=== PATIENT | male | born 1970 | race Caucasian/White ===

== ENCOUNTER 2017-03-31 11:00 | Emergency (ER) | payer BC, OTHER ==
[2017-03-31] MEDS ORDERED: PROPARACAINE HCL OPTH 15ML BTL OPTH ONE (11:01)
--- NOTE | 2017-03-31 11:22 | Emergency Department Record ---
History of Present Illness - General Chief complaint: Eye Problem Stated complaint: FB IN EYE Time Seen by Provider: 03/31/17 11:01 Source: Patient Mode of Arrival: Ambulatory Limitations: No limitations - History of Present Illness Initial comments: 46 yo male presents with a foreign body sensation in the right eye. 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 He does not recall a specific injury. He has a lens implant in the right eye from a trauma 10 years ago. His normal vision in the right eye is poor. No contacts. His vision in his "good" eye is normal today. No grinding or high velocity work. Ophthalmology care is through [facility] chief complaint: Eye pain, Foreign body -: Minutes(s) Onset Description: Sudden Location: Right eye Place: Work If Injury: Other (dust and debris) Eye Symptoms: Decreased vision Severity: Moderate If Pain, Quality: Aching Consistency: Constant Associated Symptoms: None Treatments Prior to Arrival: None - Related Data Home Medications Medication Instructions Recorded Confirmed Last Taken No Home Med [NO HOME MEDS] 03/31/17 03/31/17 Unknown Allergies Allergy/AdvReac Type Severity Reaction Status Date / Time NO KNOWN DRUG ALLERGY Allergy Uncoded 09/19/13 10:12 Review of Systems Constitutional: Denies: Chills, Fever Eyes: Reports: Eye pain, Vision change ENT: Denies: Congestion, Throat pain Respiratory: Denies: Cough Cardiovascular: Denies: Chest pain, Syncope Endocrine: Denies: Fatigue Gastrointestinal: Denies: Abdominal pain, Diarrhea, Nausea, Vomiting Genitourinary: Denies: Dysuria, Frequency, Hematuria Musculoskeletal: Denies: Arthralgia, Back pain, Myalgia Skin: Denies: Bruising, Change in color, Rash Neurological: Denies: Confusion, Headache, Numbness, Tremors, Vertigo, Weakness Psychiatric: Denies: Anxiety Hematological/Lymphatic: Denies: Blood Clots, Easy bleeding, Easy bruising Physical Exam - General General Appearance: Alert, Oriented x3, Cooperative, No acute distress Limitations: No limitations - Head Head exam: Atraumatic, Normal inspection - Eye Eye exam: PERRL, Conjunctival injection (mild), EOMI. negative: Periorbital swelling, Periorbital tenderness Pupils: Other (post op with lens). negative: Irregular Image of Eyes: 1 - stain uptake 2 - tiny dark FB, no rust - ENT ENT exam: Normal exam Ear exam: Normal external inspection Nasal Exam: Normal inspection Mouth exam: Normal external inspection - Neck Neck exam: Normal inspection - Rectal Rectal exam: Deferred - exam: Deferred - Neurological Neurological exam: Alert, CN II-XII intact, Normal gait, Oriented X3. 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 03/31/17 11:22 Disposition Disposition: Discharge Clinical Impression: Corneal abrasion, Eye foreign body Disposition: Home, Self-Care Condition: (1) Good Instructions: Corneal Abrasion (ED), Eye Foreign Body (ED) Additional Instructions: REturn if worse [facility] eye doctor for a recheck tomorrow if not significantly improved. Aplly 2 drops every 6 hours for the antibiotic Forms: Patient Portal Access Time of Disposition: 11:27 Quality - Quality Measures Quality Measures: N/A - Blood Pressure Screening Does Patient Have Any of the Following: No Blood Pressure Classification: Hypertensive Reading Systolic Measurement: 151 Diastolic Measurement: 98 Screening for High Blood Pressure: < Pre-Hypertensive BP, F/U Documented > [ G8950] Pre-Hypertensive Follow-up Interventions: Referral to alternative/primary care provider.
[2017-03-31] MEDS ORDERED: SULFACETAMIDE SODIUM 15ML BTL OPTH ONE (11:26)
[2017-03-31 13:34] LABS: AMPHETAMINE SCREEN URINE NOT DETECTED; BARBITURATE SCREEN URINE NOT DETECTED; BENZODIAZEPINE SCREEN URINE NOT DETECTED; COCAINE SCREEN URINE NOT DETECTED; METHADONE SCREEN URINE NOT DETECTED; METHAMPHETAMINE SCREEN NOT DETECTED; OPIATE SCREEN URINE NOT DETECTED; OXYCODONE SCREEN URINE NOT DETECTED; PHENCYCLIDINE SCREEN URINE NOT DETECTED; PROPOXYPHENE SCREEN URINE NOT DETECTED; THC SCREEN URINE NOT DETECTED; TRICYCLIC ANTIDEPRESSANT SCRN NOT DETECTED
== END 2017-03-31 11:36 | disposition home or self-care (01) ==
LOC: ER 11:00
DX: T15.01XA Foreign body in cornea, right eye, initial encounter (principal); Y92.63 Factory as the place of occurrence of the external cause; Y99.0 Civilian activity done for income or pay
CPT/HCPCS: 65222; 80305; 99283

== ENCOUNTER 2018-11-08 06:23 | Emergency (ER) | payer BC ==
[2018-11-08] MEDS ORDERED: ASPIRIN 81 MG CHEWABLE TABLET PO ONE (06:38)
--- NOTE | 2018-11-08 06:44 | Emergency Department Record ---
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 he has never had any thing like this before. he smokes. he has no fam hx, no htn, no hi chol. he has been on no recent trips, no recent surgeries and no leg pain he is currently feeling better with no chest pain. MD Complaint: Lightheadedness Onset/Timin -: Days(s) Timing: Unsure Description: Lightheadedness, Off-balance History of Same: No History of Trauma: No Severity: Moderate Improves With: Nothing Worsens With: Nothing Associated Symptoms: Chest pain, Shortness of breath, Other - [place] Coma Scale Eye Response: (4) Open spontaneously Motor Response: (6) Obeys commands Verbal Response: (5) Oriented [place] Total: 15 - Related Data Home Medications Medication Instructions Recorded Confirmed Last Taken No Home Med [NO HOME MEDS] 11/08/18 11/08/18 Unknown Allergies Allergy/AdvReac Type Severity Reaction Status Date / Time NO KNOWN DRUG ALLERGY Allergy Uncoded 09/19/13 10:12 Travel Screening - Travel/Exposure Within Last 30 Days Have you traveled within the last 30 days?: No Review of Systems Reviewed: No additional complaints except as noted below Constitutional: Reports: As per HPI. Denies: Chills, Fever, Malaise, Night sweats, Weakness, Weight change Eyes: Reports: As per HPI. Denies: Eye discharge, Eye pain, Photophobia, Vision change ENT: Reports: As per HPI. Denies: Congestion, Dental pain, Ear pain, Epistaxis, Hearing loss, Throat pain Respiratory: Reports: As per HPI, Dyspnea. Denies: Cough, Hemoptysis, Stridor, Wheezes Cardiovascular: Reports: As per HPI, Chest pain. Denies: Arrhythmia, Dyspnea on exertion, Edema, Murmurs, Orthopnea, Palpitations, Paroxysmal nocturnal dyspnea, Rheumatic Fever, Syncope Endocrine: Reports: As per HPI. Denies: Fatigue, Heat or cold intolerance, Polydipsia, Polyuria Gastrointestinal: Reports: As per HPI, Nausea. Denies: Abdominal pain, Constipation, Diarrhea, Hematemesis, Hematochezia, Melena, Vomiting Genitourinary: Reports: As per HPI. Denies: Dysuria, Frequency, Hematuria, Incontinence, Retention, Testicular pain, Testicular mass, Urgency Musculoskeletal: Reports: As per HPI. Denies: Arthralgia, Back pain, Gout, Joint swelling, Myalgia, Neck pain Skin: Reports: As per HPI. Denies: Bruising, Change in color, Change in hair/nails, Lesions, Pruritus, Rash Neurological: Reports: As per HPI. Denies: Abnormal gait, Confusion, Headache, Numbness, Paresthesias, Seizure, Tingling, Tremors, Vertigo, Weakness Psychiatric: Reports: As per HPI. Denies: Anxiety, Auditory hallucinations, Depression, Homicidal thoughts, Suicidal thoughts, Visual hallucinations Hematological/Lymphatic: Reports: As per HPI. Denies: Anemia, Blood Clots, Easy bleeding, Easy bruising, Swollen glands Past Medical History - SOCIAL HISTORY Smoking Status: Current every day smoker Alcohol Use: None Drug Use: None - RESPIRATORY Hx Respiratory Disorders: No - CARDIOVASCULAR Hx Cardio Disorders: No - NEURO Hx Neuro Disorders: No - GI Hx GI Disorders: No - Hx Genitourinary Disorders: No - ENDOCRINE Hx Endocrine Disorders: No - MUSCULOSKELETAL Hx Musculoskeletal Disorders: No - PSYCH Hx Psych Problems: No - HEMATOLOGY/ONCOLOGY Hx Hematology/Oncology Disorders: No Family Medical History Any Significant Family History?: No Physical Exam - General General Appearance: Alert, Oriented x3, Cooperative, Mild distress - Head Head exam: Normal inspection - Eye Eye exam: Normal appearance, PERRL, EOMI Pupils: Normal accommodation - ENT ENT exam: Normal exam, Mucous membranes moist, Normal external ear exam, Normal orophraynx Ear exam: Normal external inspection. negative: External canal tenderness Nasal Exam: Normal inspection. negative: Discharge, Sinus tenderness Mouth exam: Normal external inspection, Tongue normal Teeth exam: Normal inspection. negative: Dental caries Throat exam: Normal inspection. negative: Tonsillar erythema, Tonsillar exudate - Neck Neck exam: Normal inspection, Full ROM. negative: Tenderness - Respiratory Respiratory exam: Normal lung sounds bilaterally. negative: Respiratory distress - Cardiovascular Cardiovascular Exam: Regular rate, Normal rhythm, Normal heart sounds - GI/Abdominal GI/Abdominal exam: Soft, Normal bowel sounds. negative: Tenderness - Rectal Rectal exam: Deferred - exam: Deferred - Extremities Extremities exam: Normal inspection, Full ROM, Normal capillary refill. negative: Tenderness - Back Back exam: Reports: Normal inspection, Full ROM. Denies: Muscle spasm, Rash noted, Tenderness - Neurological Neurological exam: Alert, CN II-XII intact, Normal gait, Oriented X3 - Psychiatric Psychiatric exam: Normal affect, Normal mood - Skin Skin exam: Dry, Intact, Normal color, Warm Course Vital Signs 11/08/18 06:23 Temperature 98.6 F Pulse Rate 86 Respiratory 20 Rate Blood Pressure 150/105 Pulse Ox 99 - Reevaluation(s) Reevaluation #1: 11/08/18 06:53 care is being assumed by dr whitt. Medical Decision Making - Lab Data Result diagrams: 11/08/18 06:45 11/08/18 06:45 Disposition Forms: Patient Portal Access Quality - Quality Measures Quality Measures: N/A - Blood Pressure Screening Does Patient Have Any of the Following: No Blood Pressure Classification: Hypertensive Reading Systolic Measurement: 150 Diastolic Measurement: 105 Screening for High Blood Pressure: < First Hypertensive BP, F/U Documented > [G8950] First Hypertensive Follow-up Interventions: Follow-up with rescreen GT 1 day and LT 4 weeks.
[2018-11-08 07:01] LABS: ABSOLUTE NEUTROPHIL COUNT 7.45; BASO % 0.6 % (0-6); EOS % 1.7 % (0-6); GRAN % 67.8 % (47-80); HEMATOCRIT 46.8 % (42.0-52.0); LYMPH % 21.2 % (16-45); MEAN CORPUSCULAR HEMOGLOBIN 30.1 pg (27-33); MEAN CORPUSCULAR HGB CONC 34.2 g/dl (32-36); MEAN PLATELET VOLUME 10.6 fl (7.4-10.4); MONO % 8.7 % (0-9); PLATELET COUNT 264 K/uL (130-400); RED BLOOD COUNT 5.32 M/uL (4.40-5.70); RED CELL DISTRIBUTION WIDTH 13.5 % (11.5-14.5)
[2018-11-08] MEDS ORDERED: MECLIZINE 25 MG TABLET PO ONE (07:05)
[2018-11-08 07:14] LABS: BLOOD UREA NITROGEN 15 mg/dL (6-20)
[2018-11-08 07:15] LABS: EST GLOMERULAR FILTRATION RATE > 60 mL/min; TOTAL PROTEIN 6.8 g/dL (6.6-8.7)
[2018-11-08 07:17] LABS: GLUCOSE,RANDOM 104 mg/dL (74-109)
[2018-11-08 07:20] LABS: ALB/GLOB RATIO 2.1 (1.1-1.8); ALBUMIN 4.6 g/dL (4.0-5.0); ALKALINE PHOSPHATASE 53 U/L (40-129); ALT/SGPT 24 U/L (<41); AST/SGOT 31 U/L (10.0-50.0); CREATINE PHOSPHOKINASE 577 U/L (39-308)
[2018-11-08 07:22] LABS: CKMB 10.2 ng/mL (<6.73)
[2018-11-08 07:32] LABS: THYROID STIMULATING HORMONE 2.54 uIU/mL (0.270-4.20)
[2018-11-08 07:36] LABS: CKMB RELATIVE INDEX 1.77 % (0-4)
--- NOTE | 2018-11-08 08:18 | Emergency Department Record ---
History of Present Illness - General Chief Complaint: Dizziness Stated Complaint: DIZZY Time Seen by Provider: 11/08/18 06:32 Source: Patient Mode of Arrival: Ambulatory Limitations: No limitations - History of Present Illness Onset/Timin -: Days(s) Timing: Unsure Description: Lightheadedness, Off-balance History of Same: No History of Trauma: No Severity: Moderate Improves With: Nothing Worsens With: Nothing Associated Symptoms: Chest pain, Shortness of breath, Other - [place] Coma Scale Eye Response: (4) Open spontaneously Motor Response: (6) Obeys commands Verbal Response: (5) Oriented [place] Total: 15 - Related Data Home Medications Medication Instructions Recorded Confirmed Last Taken No Home Med [NO HOME MEDS] 11/08/18 11/08/18 Unknown Allergies Allergy/AdvReac Type Severity Reaction Status Date / Time NO KNOWN DRUG ALLERGY Allergy Uncoded 09/19/13 10:12 Travel Screening - Travel/Exposure Within Last 30 Days Have you traveled within the last 30 days?: No Review of Systems Constitutional: Reports: As per HPI. Denies: Chills, Fever, Malaise, Night sweats, Weakness, Weight change Eyes: Reports: As per HPI. Denies: Eye discharge, Eye pain, Photophobia, Vision change ENT: Reports: As per HPI. Denies: Congestion, Dental pain, Ear pain, Epistaxis, Hearing loss, Throat pain Respiratory: Reports: As per HPI, Dyspnea. Denies: Cough, Hemoptysis, Stridor, Wheezes Cardiovascular: Reports: As per HPI, Chest pain. Denies: Arrhythmia, Dyspnea on exertion, Edema, Murmurs, Orthopnea, Palpitations, Paroxysmal nocturnal dyspnea, Rheumatic Fever, Syncope Endocrine: Reports: As per HPI. Denies: Fatigue, Heat or cold intolerance, Polydipsia, Polyuria Gastrointestinal: Reports: As per HPI, Nausea. Denies: Abdominal pain, Constipation, Diarrhea, Hematemesis, Hematochezia, Melena, Vomiting Genitourinary: Reports: As per HPI. Denies: Dysuria, Frequency, Hematuria, Incontinence, Retention, Testicular pain, Testicular mass, Urgency Musculoskeletal: Reports: As per HPI. Denies: Arthralgia, Back pain, Gout, Joint swelling, Myalgia, Neck pain Skin: Reports: As per HPI. Denies: Bruising, Change in color, Change in hair/nails, Lesions, Pruritus, Rash Neurological: Reports: As per HPI. Denies: Abnormal gait, Confusion, Headache, Numbness, Paresthesias, Seizure, Tingling, Tremors, Vertigo, Weakness Psychiatric: Reports: As per HPI. Denies: Anxiety, Auditory hallucinations, Depression, Homicidal thoughts, Suicidal thoughts, Visual hallucinations Hematological/Lymphatic: Reports: As per HPI. Denies: Anemia, Blood Clots, Easy bleeding, Easy bruising, Swollen glands Past Medical History - SOCIAL HISTORY Smoking Status: Current every day smoker Alcohol Use: None Drug Use: None - RESPIRATORY Hx Respiratory Disorders: No - CARDIOVASCULAR Hx Cardio Disorders: No - NEURO Hx Neuro Disorders: No - GI Hx GI Disorders: No - Hx Genitourinary Disorders: No - ENDOCRINE Hx Endocrine Disorders: No - MUSCULOSKELETAL Hx Musculoskeletal Disorders: No - PSYCH Hx Psych Problems: No - HEMATOLOGY/ONCOLOGY Hx Hematology/Oncology Disorders: No Family Medical History Any Significant Family History?: No Physical Exam - General Limitations: No limitations Course Vital Signs 11/08/18 11/08/18 06:23 06:53 Temperature 98.6 F Pulse Rate 86 Pulse Rate [ 87 Pulse Ox Probe] Respiratory 20 20 Rate Blood Pressure 150/105 Blood Pressure 137/97 [Left Arm] Pulse Ox 99 98 - Reevaluation(s) Reevaluation #1: I did assume care of the patient from Dr. Saeed. The patient is a 47 year old male who came in at 6:30 am for lightheadedness and some sharp stabbing L sided CP. The patient states the pain only lasted a second at a time and came and went over the span of about 20 seconds. Presently the patient denies any symptoms and is feeling back to normal. He denied any hx of L sided CP, SOB, CANDELARIA, CONTRERAS, or visual changes. I did discuss the workup with him and did discuss the need for a 2nd set of cardiac enzymes. Presently on exam the patient is A & O x 3, CN2-12 intact, motor and sensory 5/5 upper and lower ext. Neg drift exam and Rhomberg exams. 11/08/18 08:1 Reevaluation #2: 2nd EKG: NSR at 63, neg ST-T changes. Normal EKG. 11/08/18 10:18 Reevaluation #3: The patient is doing very well at this time. He has had no dizziness, lightheadedness, CP, SOB, or CANDELARIA while here in the ER. The patient states his pain was sharp and stabbing and only lasted a second at a time when he did have it at 6am today. The patient has no hx of CP with exertion or any cardiac hx. His only risk factor for coronary dz is a hx of tobacco use. He has no family hx of CAD, DM, HTN or high cholesterol. The patient has remained asymptomatic in the ER and has had 2 normal EKG's, 2 normal Trop, and has a clearly normal Neuro exam. I did offer to keep the patient in the hospital for monitoring and a stress test but he declined that plan. I did discuss the fact that he does have a low Heart Score of 2 which does put him in the low risk category. None the less I still felt the safest course of action is to keep him here for monitoring and a stress test but he did decline that plan. He understands and accepts the low risk of leaving here and having an AR, stroke, becoming disabled and even dying. The patient will be referred to Cardiology for further evaluation and testing. 11/08/18 10:20 Medical Decision Making - Data Complexity MDM Data: Labs Ordered and/or Reviewed, X-Ray Ordered and/or Reviewed, EKG Ordered and/or Reviewed - Lab Data Result diagrams: 11/08/18 06:20 11/08/18 06:20 Lab Results 11/08/18 11/08/18 11/08/18 Range/Units 06:20 06:20 06:20 WBC 11.0 (4.2-12.2) K/uL RBC 5.32 (4.40-5.70) M/uL Hgb 16.0 (14.0-18.0) gm/dl Hct 46.8 (42.0-52.0) % MCV 88.0 (81-97) fl MCH 30.1 (27-33) pg MCHC 34.2 (32-36) g/dl RDW 13.5 (11.5-14.5) % Plt Count 264 (130-400) K/uL MPV 10.6 H (7.4-10.4) fl Gran % 67.8 (47-80) % Lymphocytes % 21.2 (16-45) % Monocytes % 8.7 (0-9) % Eosinophils % 1.7 (0-6) % Basophils % 0.6 (0-6) % Absolute Neutrophils 7.45 D-Dimer 0.24 (0-0.59) mg/L FEU Sodium 138 (136-145) mmol/L Potassium 4.7 H (3.4-4.5) mmol/L Chloride 104 (98-107) mmol/L Carbon Dioxide 22.0 (22-29) mmol/L Anion Gap 12.0 (7-16) BUN 15 (6-20) mg/dL Creatinine 1.0 (0.7-1.2) mg/dL Estimated GFR > 60 mL/min Random Glucose 104 (74-109) mg/dL Calcium 9.7 (8.6-10.0) mg/dL Total Bilirubin 0.40 (0.2-1.0) mg/dL AST 31 (10.0-50.0) U/L ALT 24 (<41) U/L Alkaline Phosphatase 53 (40-129) U/L Creatine Kinase 577 H (39-308) U/L CK-MB (CK-2) 10.2 H (<6.73) ng/mL CK-MB (CK-2) Rel Index 1.77 (0-4) % Troponin T < 0.010 (0-0.010) ng/mL Total Protein 6.8 (6.6-8.7) g/dL Albumin 4.6 (4.0-5.0) g/dL Globulin 2.2 (1.4-4.8) gm/dL Albumin/Globulin Ratio 2.1 H (1.1-1.8) TSH 2.54 (0.270-4.20) uIU/mL 11/08/18 Range/Units 06:20 WBC (4.2-12.2) K/uL RBC (4.40-5.70) M/uL Hgb (14.0-18.0) gm/dl Hct (42.0-52.0) % MCV (81-97) fl MCH (27-33) pg MCHC (32-36) g/dl RDW (11.5-14.5) % Plt Count (130-400) K/uL MPV (7.4-10.4) fl Gran % (47-80) % Lymphocytes % (16-45) % Monocytes % (0-9) % Eosinophils % (0-6) % Basophils % (0-6) % Absolute Neutrophils D-Dimer (0-0.59) mg/L FEU Sodium (136-145) mmol/L Potassium (3.4-4.5) mmol/L Chloride (98-107) mmol/L Carbon Dioxide (22-29) mmol/L Anion Gap (7-16) BUN (6-20) mg/dL Creatinine (0.7-1.2) mg/dL Estimated GFR mL/min Random Glucose (74-109) mg/dL Calcium (8.6-10.0) mg/dL Total Bilirubin (0.2-1.0) mg/dL AST (10.0-50.0) U/L ALT (<41) U/L Alkaline Phosphatase (40-129) U/L Creatine Kinase Cancelled (39-308) U/L CK-MB (CK-2) (<6.73) ng/mL CK-MB (CK-2) Rel Index (0-4) % Troponin T (0-0.010) ng/mL Total Protein (6.6-8.7) g/dL Albumin (4.0-5.0) g/dL Globulin (1.4-4.8) gm/dL Albumin/Globulin Ratio (1.1-1.8) TSH (0.270-4.20) uIU/mL - EKG Data -: EKG Interpreted by Me EKG: No Acute Changes, Normal EKG - Radiology Data Radiology results: Report reviewed (CXR: Neg.) Disposition Disposition: Discharge Clinical Impression: Lightheadedness Disposition: Home, Self-Care Condition: (2) Stable Instructions: Dizziness (ED) Additional Instructions: Please rest today and drink plenty of fluids. Please see a Photograph Developer in the [facility] as directed and also see your family doctor later this week. Return to the ER for ANY new pain, weakness, trouble breathing or lightheadedness. Referrals: [facility] [Provider Group] BETHANY RICHARDSON M.D. [MEDICAL DOCTOR] - SULEIMAN HINES M.D. [MEDICAL DOCTOR] - Forms: Patient Portal Access Time of Disposition: 10:30 Quality - Quality Measures Quality Measures: N/A - Blood Pressure Screening View Details: Yes Does Patient Have Any of the Following: No Blood Pressure Classification: Hypertensive Reading Systolic Measurement: 142 Diastolic Measurement: 102 Screening for High Blood Pressure: < First Hypertensive BP, F/U Documented > [G8950] First Hypertensive Follow-up Interventions: Referral to alternative/primary care provider.
--- NOTE | 2018-11-10 16:50 | RADIOLOGY REPORT ---
EXAM: CHEST 2 VIEWS HISTORY: SUDDEN ONSET RIGHT-SIDED CHEST PRESSURE WITH EXTREME VERTIGO. TECHNIQUE: Upright PA and lateral views of the chest. COMPARISON: CT of the chest with contrast dated 05/28/2011. FINDINGS: The heart is not enlarged. No pulmonary venous hypertension is seen. The thoracic aorta is mildly tortuous and atherosclerotic. Minimal linear scarring vs. atelectasis is present in each lung base. No lung consolidation, costophrenic angle blunting, or pneumothorax. Mild degenerative endplate changes are scattered throughout the visualized spine associated with mild levoconvex curvature centered at the lower thoracic levels. IMPRESSION: 1. NO RADIOGRAPHIC EVIDENCE OF ACUTE CARDIOPULMONARY DISEASE. 2. MINOR LINEAR SCARRING VS. ATELECTASIS IN EACH LUNG BASE. 3. MILD HYPERINFLATION OF THE LUNGS. JOB NUMBER: [id number] MTDD
== END 2018-11-08 10:42 | disposition home or self-care (01) ==
LOC: ER 06:23
DX: R42 Dizziness and giddiness (principal); R07.89 Other chest pain; R06.02 Shortness of breath; F17.210 Nicotine dependence, cigarettes, uncomplicated
CPT/HCPCS: 71046; 80053; 82550; 82553; 84443; 84484; 85025; 85379; 93005; 93010; 99284